=== PATIENT | male | born 2000 | race African-American/Black ===

== ENCOUNTER 2018-12-21 19:33 | Emergency (ER) | payer SELFPAY ==
[~2018-12-21] VITALS: Ht 177.8 cm; Wt 108.9 kg
[2018-12-21 20:10] VITALS: BP 123/67
[2018-12-21] MEDS ORDERED: IBUP-1007 PO (20:19)
[2018-12-21] MEDS ORDERED: HYDR-3164 PO (20:19)
[2018-12-21] MEDS ORDERED: ORPH100T PO (20:19)
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
[2018-12-21] MEDS ORDERED: HYDROcodone/APAP 5/325MG 1 TAB TABLET PO ONE (20:30)
[2018-12-21] MEDS ORDERED: IBUPROFEN 600 MG TABLET. PO ONE (20:30)
== END 2018-12-21 20:55 | disposition home or self-care (01) ==
LOC: ER 19:33
DX: S46.812A Strain of other muscles, fascia and tendons at shoulder and upper arm level, left arm, initial encounter (principal); S16.1XXA Strain of muscle, fascia and tendon at neck level, initial encounter; V49.9XXA Car occupant (driver) (passenger) injured in unspecified traffic accident, initial encounter; Y93.89 Activity, other specified; Y92.410 Unspecified street and highway as the place of occurrence of the external cause; Y99.8 Other external cause status
CPT/HCPCS: 99283

== ENCOUNTER 2019-03-12 09:41 | Emergency (ER) | payer SELFPAY ==
[~2019-03-12] VITALS: Ht 182.9 cm; Wt 108.9 kg
[~2019-03-12 09:41] MED LIST: HYDR-3164 PO; IBUP-1007 PO; ORPH100T PO
[2019-03-12 10:17] VITALS: BP 128/58
[2019-03-12] MEDS ORDERED: CETIRIZINE HCL 10 MG TABLET. PO STA (10:22)
[2019-03-12] MEDS ORDERED: ACETAMINOPHEN 500 MG TABLET PO ONE (10:30)
[2019-03-12] MEDS ORDERED: predniSONE 10 MG TABLET PO ONE (10:30)
[2019-03-12] MEDS ORDERED: PRED50TA PO (10:32)
[2019-03-12] MEDS ORDERED: FLUT9.9S NS (10:32)
--- NOTE | 2019-03-12 10:33 | PHYS DOC ---
Past Medical History Past Medical History: No Pertinent History (SILVIA MONTES DE OCA APRN) Past Surgical History: No Surgical History (SILVIA MONTES DE OCA APRN) Alcohol Use: None Drug Use: None (SILVIA MONTES DE OCA APRN) Adult General Chief Complaint Chief Complaint: Congestion HPI HPI Patient is a 19 year old male who presents complaining of cough, subjective fevers, chills, bodyaches, nasal congestion, symptoms began 2 days ago. Mother also stated patient has history of seasonal allergies and will not take anything for his allergies. (SILVIA MONTES DE OCA APRN) Review of Systems Review of Systems Constitutional: Reports subjective fevers and body aches Eyes: Denies change in visual acuity, redness, or eye pain [] HENT: Reports nasal congestion, denies sore throat [] Respiratory: Reports cough, denies shortness of breath [] Cardiovascular: No additional information not addressed in HPI [] GI: Denies abdominal pain, nausea, vomiting, bloody stools or diarrhea [] : Denies dysuria or hematuria [] Musculoskeletal: Denies back pain or joint pain [] Integument: Denies rash or skin lesions [] Neurologic: Denies headache, focal weakness or sensory changes [] All other systems were reviewed and found to be within normal limits, except as documented in this note. (SILVIA MONTES DE OCA APRN) Current Medications Current Medications Current Medications Medications (Trade) Dose Ordered Sig/Meg Start Time Stop Time Status Last Admin Dose Admin Acetaminophen (Tylenol) 1,000 mg 1X ONCE 03/12/19 10:30 03/12/19 10:31 DC 03/12/19 10:52 1,000 MG Cetirizine HCl (ZyrTEC) 10 mg 1X STAT 03/12/19 10:22 03/12/19 10:24 DC 03/12/19 10:52 10 MG Prednisone (Prednisone) 50 mg 1X ONCE 03/12/19 10:30 03/12/19 10:31 DC 03/12/19 10:52 50 MG (TYLER MILTON DO) Allergies Allergies Allergies Coded Allergies Type Severity Reaction Last Updated Verified No Known Drug Allergies 12/21/18 No (TYLER MILTON DO) Physical Exam Physical Exam Constitutional: Well developed, well nourished, no acute distress, non-toxic appearance. [] HENT: Normocephalic, atraumatic, bilateral external ears normal, oropharynx moist, no oral exudates, patient sounds congested nasally Eyes: PERRLA, EOMI, conjunctiva normal, no discharge. [] Neck: Normal range of motion, no tenderness, supple, no stridor. [] Cardiovascular:Heart rate regular rhythm, no murmur [] Lungs & Thorax: Bilateral breath sounds clear to auscultation [] Abdomen: Bowel sounds normal, soft, no tenderness, no masses, no pulsatile masses. [] Skin: Warm, dry, no erythema, no rash. [] Back: No tenderness, no CVA tenderness. [] Extremities: No tenderness, no cyanosis, no clubbing, ROM intact, no edema. [] Neurologic: Alert and oriented X 3, normal motor function, normal sensory function, no focal deficits noted. [] Psychologic: Affect normal, judgement normal, mood normal. [] (SILVIA MONTES DE OCA APRN) Current Patient Data Vital Signs Vital Signs Date Time Temp Pulse Resp B/P (MAP) Pulse Ox O2 Delivery O2 Flow Rate FiO2 03/12/19 10:17 99.6 73 18 128/58 (81) 97 Room Air 99.6 (MILTON,TYLER Xiao DO) EKG EKG [] (SILVIA MONTES DE OCA APRN) Radiology/Procedures Radiology/Procedures [] (SILVIA MONTES DE OCA APRN) Course & Med Decision Making Course & Med Decision Making Pertinent Labs and Imaging studies reviewed. (See chart for details) This is a 19-year-old male patient presenting to the ED today with cough and nasal congestion and subjective fevers body aches symptoms began 2 days ago. Mother is also concerned patient has seasonal allergies and will not take anything for his allergies. Temperature on arrival 99.6. Informed patient as well as parents his symptoms could be upper respiratory infection/viral illness with allergic rhinitis. Given prednisone and Tylenol in the ED as well as Zyrtec. Discharged with prednisone, Flonase, Claritin D and instructed to take Tylenol or Motrin for pain or fever. Follow-up with primary care doctor in 1-2 weeks. (SILVIA MONTES DE OCA APRN) Dragon Disclaimer Dragon Disclaimer This electronic medical record was generated, in whole or in part, using a voice recognition dictation system. (SILVIA MONTES DE OCA APRN) Departure Departure Impression: Primary Impression: Upper respiratory infection Additional Impressions: Fever Cough Allergic rhinitis Disposition: HOME, SELF-CARE Condition: STABLE Referrals: NO PCP (PCP) follow up with your doctor in 1-2 weeks Patient Instructions: Allergic Rhinitis, Cough, Adult, Fever, Adult, Upper Respiratory Infection, Adult Additional Instructions: You were seen in the ED with symptoms consistent of an upper respiratory as well as seasonal allergies. Please consider taking an allergy medicine with decongestant including Claritin-D. Complete the prescribed prednisone. Take Tylenol/Motrin for pain or fever. Push fluids, rest. Follow-up with your doctor in 1-2 weeks. Scripts Prednisone (PREDNISONE) 50 Mg Tablet 1 TAB PO DAILY, #5 TAB Prov: SILVIA MONTES DE OCA APRN 03/12/19 Fluticasone Propionate (Flonase Allergy Relief) 9.9 Ml [place].susp 2 SPRAYS NS DAILY, #1 BOTTLE Prov: SILVIA MONTES DE OCA APRN 03/12/19 Attending Signature Attending Signature I have reviewed the PA/TRAINING PROJECT MANAGER's note and plan of care. I was available for consultation as needed during the patient's visit in the emergency department. I agree with the clinical impression, plan, and disposition. (TYLER MILTON DO) Problem Qualifiers Primary Impression: Upper respiratory infection URI type: unspecified URI Qualified Codes: J06.9 - Acute upper respiratory infection, unspecified Additional Impressions: Fever Fever type: unspecified Qualified Codes: R50.9 - Fever, unspecified Allergic rhinitis Allergic rhinitis trigger: unspecified Allergic rhinitis seasonality: seasonal Qualified Codes: J30.2 - Other seasonal allergic rhinitis SILVIA MONTES DE OCA APRN Mar 12, 2019 10:33 TYLER MILTON DO Mar 13, 2019 11:36
== END 2019-03-12 10:55 | disposition home or self-care (01) ==
LOC: ER 09:41
DX: J30.2 Other seasonal allergic rhinitis (principal); J06.9 Acute upper respiratory infection, unspecified; R50.9 Fever, unspecified
CPT/HCPCS: 99284; J7512